=== PATIENT | female | born 1975 | race Caucasian/White ===

== ENCOUNTER → 2016-12-06 | Outpatient (CLI) | payer OTHER ==
[~2016-12-06] MED LIST: ADDERALL 10 MG10 MG PO; ALBUTEROL0.09 MG/A2 INH; ATARAX,VISTARIL50 MG PO; BRIN10TA PO; DEPAKOTE ER500 MG PO; FLEXERIL10 MG PO; GEODON20 MG PO; HYDROCODONE BIT1 T11 PO; KEFLEX500 MG PO; LAMICTAL ODT50 MG MM; LAMICTAL100 MG PO; LAMICTAL200 MG PO; LAMICTAL25 MG PO; LEVOFLOXACIN500 MG PO; LIBRIUM25 MG PO; MEDROL DOSEPAK4 MG PO; MOTRIN800 MG PO; Motrin,Rufen800 MG PO; NEURONTIN800 MG PO; NORVASC10 MG PO; PERCOCET 325 MG1 TA7 PO; PHENERGAN W/ DE30 ML PO; PREDNISONE10 MG PO; PREDNISONE20 M1 PO; TESSALON PERLE100 M1 PO; ULTRAM50 MG PO; VALIUM2 MG PO; VISTARIL50 MG PO; WELLBUTRIN XL150 MG PO; WELLBUTRIN75 MG PO; XANAX0.25 MG PO; Z-PACK; ZOLOFT100 MG PO; ZOLOFT50 MG PO
[2016-12-06 10:23] LABS: BASO # 0.1 10*3/uL (0.0-0.1); BASO % 0.4 % (0.0-1.0); EOS # 0.2 10*3/uL (0.0-0.4); EOS % 1.8 % (1.0-4.0); HEMATOCRIT 39.4 % (37.0-47.0); HEMOGLOBIN 13.1 g/dl (12.0-16.0); LYMPH # 4.4 10*3/uL (1.3-4.4); LYMPH % 35.4 % (27.0-41.0); MEAN CELL VOLUME 96.8 fl (81.0-99.0); MEAN CORPUSCULAR HGB 32.2 pg (27.0-31.0); MEAN CORPUSCULAR HGB CONC 33.2 g/dl (33.0-37.0); MEAN PLATELET VOLUME 9.6 fl (9.6-12.3); MONO # 0.9 10*3/uL (0.1-1.0); MONO % 7.4 % (3.0-9.0); NEUT # 6.9 10*3/uL (2.3-7.9); NEUT % 54.8 % (47.0-73.0); PLATELET COUNT AUTOMATED 215 10*3/uL (130-400); RED BLOOD COUNT 4.07 10*6/uL (4.10-5.10); RED CELL DISTRI WIDTH 12.8 % (0-14.5); WHITE BLOOD COUNT 12.6 10*3/uL (4.8-10.8)
[2016-12-06 10:56] LABS: CARBON DIOXIDE 29 mmol/L (21-32); CHLORIDE 102 mmol/L (98-107); POTASSIUM 3.7 mmol/L (3.5-5.1); SODIUM 139 mmol/L (136-145)
[2016-12-06 11:10] LABS: ALBUMIN 3.8 gm/dl (3.1-4.5); ALKALINE PHOSPHATASE 64 U/L (45-117); BILIRUBIN, TOTAL 0.5 mg/dl (0.2-1.0); BUN 7 mg/dl (7-24); EST GLOM FILT AFRICAN AMERICAN > 60 ml/min; GLUCOSE 91 mg/dL (65-99); SGOT/AST 15 IU/L (3-35); SGPT/ALT 15 U/L (12-78); TOTAL PROTEIN 7.8 gm/dL (6.4-8.2)
== END | disposition home or self-care (01) ==
LOC: LAB 09:52
PROVIDERS: Physician Assistant
DX: Z51.81 Encounter for therapeutic drug level monitoring (principal)

== ENCOUNTER → 2017-05-08 | Outpatient (CLI) | payer OTHER ==
[2017-05-08 14:58] LABS: BASO % 0.3 % (0.0-1.0); EOS # 0.1 10*3/uL (0.0-0.4); EOS % 0.8 % (1.0-4.0); HEMOGLOBIN 13.1 g/dl (12.0-16.0); LYMPH # 3.9 10*3/uL (1.3-4.4); LYMPH % 41.3 % (27.0-41.0); MEAN CELL VOLUME 95.1 fl (81.0-99.0); MEAN CORPUSCULAR HGB CONC 33.6 g/dl (33.0-37.0); MEAN PLATELET VOLUME 9.4 fl (9.6-12.3); MONO # 0.7 10*3/uL (0.1-1.0); MONO % 7.5 % (3.0-9.0); NEUT # 4.7 10*3/uL (2.3-7.9); NEUT % 49.8 % (47.0-73.0); PLATELET COUNT AUTOMATED 197 10*3/uL (130-400); RED CELL DISTRI WIDTH 13.2 % (0-14.5); WHITE BLOOD COUNT 9.5 10*3/uL (4.8-10.8)
[2017-05-08 15:25] LABS: ALBUMIN 3.5 gm/dl (3.1-4.5); ALKALINE PHOSPHATASE 49 U/L (45-117); BUN 5 mg/dl (7-24); CHLORIDE 109 mmol/L (98-107); CREATININE 0.87 mg/dL (0.55-1.02); POTASSIUM 3.6 mmol/L (3.5-5.1); SGPT/ALT 10 U/L (12-78); SODIUM 142 mmol/L (136-145); TOTAL PROTEIN 7.3 gm/dL (6.4-8.2)
[2017-05-08 15:36] LABS: THYROID STIM HORMONE (HS) 0.123 uIU/ml (0.358-4.75); VALPROIC ACID (DEPAKENE) 91.7 ug/ml (50-100)
[2017-05-08 15:37] LABS: SGOT/AST < 3 IU/L (3-35)
[2017-05-08 15:45] LABS: VITAMIN D, 25-HYDROXY 33.3 ng/mL (30-100)
== END | disposition home or self-care (01) ==
LOC: LAB 14:32
PROVIDERS: Physician Assistant
DX: Z51.81 Encounter for therapeutic drug level monitoring (principal); E55.9 Vitamin D deficiency, unspecified; Z79.899 Other long term (current) drug therapy

== ENCOUNTER → 2017-09-25 | Outpatient (CLI) | payer OTHER ==
[2017-09-25 13:55] LABS: BASO % 0.2 % (0.0-1.0); EOS # 0.1 10*3/uL (0.0-0.4); EOS % 0.9 % (1.0-4.0); HEMOGLOBIN 11.8 g/dl (12.0-16.0); LYMPH # 2.8 10*3/uL (1.3-4.4); LYMPH % 47.3 % (27.0-41.0); MEAN CELL VOLUME 97.9 fl (81.0-99.0); MEAN CORPUSCULAR HGB 31.2 pg (27.0-31.0); MEAN CORPUSCULAR HGB CONC 31.9 g/dl (33.0-37.0); MEAN PLATELET VOLUME 10.3 fl (9.6-12.3); MONO # 0.4 10*3/uL (0.1-1.0); MONO % 7.5 % (3.0-9.0); NEUT # 2.6 10*3/uL (2.3-7.9); NEUT % 43.6 % (47.0-73.0); PLATELET COUNT AUTOMATED 196 10*3/uL (130-400); RED BLOOD COUNT 3.78 10*6/uL (4.10-5.10); RED CELL DISTRI WIDTH 13.1 % (0-14.5); WHITE BLOOD COUNT 5.9 10*3/uL (4.8-10.8)
[2017-09-25 14:09] LABS: ALBUMIN 3.2 gm/dl (3.1-4.5); ALKALINE PHOSPHATASE 49 U/L (45-117); BUN 4 mg/dl (7-24); CHLORIDE 108 mmol/L (98-107); POTASSIUM 3.5 mmol/L (3.5-5.1); SGOT/AST 7 IU/L (3-35); SGPT/ALT 11 U/L (12-78); SODIUM 142 mmol/L (136-145); TOTAL PROTEIN 6.7 gm/dL (6.4-8.2)
[2017-09-25 14:18] LABS: THYROID STIM HORMONE (HS) 0.561 uIU/ml (0.358-4.75); VALPROIC ACID (DEPAKENE) 79.8 ug/ml (50-100)
== END | disposition home or self-care (01) ==
LOC: LAB 13:29
PROVIDERS: Physician Assistant
DX: Z51.81 Encounter for therapeutic drug level monitoring (principal); Z79.899 Other long term (current) drug therapy

== ENCOUNTER 2018-08-17 14:11 | Emergency (ER) | payer OTHER ==
[~2018-08-17] VITALS: Ht 177.8 cm; Wt 64.9 kg
[2018-08-17 14:14] VITALS: BP 135/69
[2018-08-17] MEDS ORDERED: SEPTDS PO (14:35)
[2018-08-17] MEDS ORDERED: CEPHALEXIN500 M1 PO (14:35)
== END 2018-08-17 15:00 | disposition home or self-care (01) ==
LOC: ED 14:11
DX: L08.9 Local infection of the skin and subcutaneous tissue, unspecified (principal); Z79.899 Other long term (current) drug therapy; Z86.14 Personal history of Methicillin resistant Staphylococcus aureus infection

== ENCOUNTER → 2018-10-24 | Outpatient (CLI) | payer OTHER ==
[~2018-10-24] MED LIST changes: +CEPHALEXIN500 M1 PO; +SEPTDS PO
== END | disposition home or self-care (01) ==
LOC: LAB 11:43
DX: Z51.81 Encounter for therapeutic drug level monitoring (principal); F31.4 Bipolar disorder, current episode depressed, severe, without psychotic features; Z79.899 Other long term (current) drug therapy

== ENCOUNTER → 2019-03-17 | Outpatient (CLI) | payer OTHER | END | disposition home or self-care (01) | LOC: LAB 10:06 | DX: Z51.81 Encounter for therapeutic drug level monitoring (principal); F31.4 Bipolar disorder, current episode depressed, severe, without psychotic features; Z79.899 Other long term (current) drug therapy ==

== ENCOUNTER 2019-09-14 15:31 | Emergency (ER) | payer OTHER ==
[~2019-09-14] VITALS: Ht 177.8 cm; Wt 56.7 kg
[2019-09-14 15:38] VITALS: BP 102/76
== END 2019-09-14 18:10 | disposition home or self-care (01) ==
LOC: ED 15:31
DX: S00.12XA Contusion of left eyelid and periocular area, initial encounter (principal); M54.2 Cervicalgia; Z79.899 Other long term (current) drug therapy; Y08.89XA Assault by other specified means, initial encounter; Y93.89 Activity, other specified; Y92.098 Other place in other non-institutional residence as the place of occurrence of the external cause; Y99.8 Other external cause status

== ENCOUNTER → 2020-04-15 | Outpatient (CLI) | payer OTHER ==
[2020-04-15 09:32] LABS: BASO % 0.5 % (0.0-1.0); EOS # 0.1 10*3/uL (0.0-0.4); EOS % 1.2 % (1.0-4.0); HEMATOCRIT 41.4 % (37.0-47.0); LYMPH # 2.4 10*3/uL (1.3-4.4); LYMPH % 40.3 % (27.0-41.0); MEAN CELL VOLUME 94.5 fl (81.0-99.0); MEAN CORPUSCULAR HGB 30.1 pg (27.0-31.0); MEAN CORPUSCULAR HGB CONC 31.9 g/dl (33.0-37.0); MEAN PLATELET VOLUME 10.6 fl (9.6-12.3); MONO # 0.5 10*3/uL (0.1-1.0); MONO % 8.1 % (3.0-9.0); NEUT # 2.9 10*3/uL (2.3-7.9); NEUT % 49.7 % (47.0-73.0); PLATELET COUNT AUTOMATED 208 10*3/uL (130-400); RED BLOOD COUNT 4.38 10*6/uL (4.10-5.10); RED CELL DISTRI WIDTH 13.7 % (0-14.5); WHITE BLOOD COUNT 5.9 10*3/uL (4.8-10.8)
[2020-04-15 09:50] LABS: ALBUMIN 3.6 gm/dl (3.1-4.5); ALKALINE PHOSPHATASE 63 U/L (45-117); B-hCG (QUALITATIVE) NEGATIVE (NEGATIVE); BILIRUBIN, DIRECT < 0.1 mg/dL (0.0-0.2); BUN 6 mg/dl (7-24); CHLORIDE 108 mmol/L (98-107); CHOLESTEROL 169 mg/dL (<200); CREATININE 0.76 mg/dL (0.55-1.02); HDL CHOLESTEROL 56 mg/dl (40-60); LDL CHOLESTEROL 88 mg/dL (9-159); POTASSIUM 3.8 mmol/L (3.5-5.1); SGOT/AST 10 IU/L (3-35); SGPT/ALT 11 U/L (12-78); SODIUM 138 mmol/L (136-145); T3 UPTAKE 34 % (31-39); TOTAL PROTEIN 7.5 gm/dL (6.4-8.2); TRIGLYCERIDES 124 mg/dl (<150); VLDL CHOLESTEROL 25 mg/dL (6-40)
[2020-04-15 09:57] LABS: THYROXINE (T4) TOTAL 4.5 ug/dl (4.8-13.9)
[2020-04-15 10:12] LABS: VITAMIN D, 25-HYDROXY 16.4 ng/mL (30-100)
== END | disposition home or self-care (01) ==
LOC: LAB 08:42
DX: Z51.81 Encounter for therapeutic drug level monitoring (principal); Z79.899 Other long term (current) drug therapy

== ENCOUNTER → 2022-02-01 | Outpatient (CLI) | payer OTHER ==
[2022-02-01 11:28] LABS: BASO % 0.5 % (0.0-1.0); EOS # 0.1 10*3/uL (0.0-0.4); EOS % 1.2 % (1.0-4.0); HEMATOCRIT 41.6 % (37.0-47.0); LYMPH # 2.6 10*3/uL (1.3-4.4); LYMPH % 39.7 % (27.0-41.0); MEAN CELL VOLUME 92.7 fl (81.0-99.0); MEAN CORPUSCULAR HGB 30.5 pg (27.0-31.0); MEAN CORPUSCULAR HGB CONC 32.9 g/dl (33.0-37.0); MEAN PLATELET VOLUME 9.9 fl (9.6-12.3); MONO # 0.4 10*3/uL (0.1-1.0); MONO % 6.8 % (3.0-9.0); NEUT # 3.4 10*3/uL (2.3-7.9); NEUT % 51.6 % (47.0-73.0); PLATELET COUNT AUTOMATED 250 10*3/uL (130-400); RED BLOOD COUNT 4.49 10*6/uL (4.10-5.10); RED CELL DISTRI WIDTH 12.4 % (0-14.5); RETICULOCYTE % 0.78 % (0.50-2.50); WHITE BLOOD COUNT 6.5 10*3/uL (4.8-10.8)
[2022-02-01 11:29] LABS: BILIRUBIN Negative (Negative); BLOOD Negative (Negative); CLARITY Cloudy (Clear); COLOR Yellow (Yellow); GLUCOSE Negative (Negative); KETONE Negative (Negative); LEUKO ESTERASE Trace (Negative); NITRITE Positive (Negative); PH 7.5 (4.5-8.0)
[2022-02-01 11:47] LABS: ALKALINE PHOSPHATASE 83 U/L (45-117); BUN 11 mg/dl (7-24); CHLORIDE 108 mmol/L (98-107); CHOLESTEROL 181 mg/dL (<200); CREATININE 0.89 mg/dL (0.55-1.02); GAMMA GLUTAMYL TRANSPEPTIDASE 20 U/L (5-55); IRON 50 ug/dL (50-170); LDL CHOLESTEROL 108 mg/dL (9-159); SGOT/AST 13 IU/L (3-35); SGPT/ALT 20 U/L (12-78); SODIUM 141 mmol/L (136-145); T3 UPTAKE 32 % (31-39); TOTAL PROTEIN 7.5 gm/dL (6.4-8.2); TRIGLYCERIDES 82 mg/dl (<150); URIC ACID 5.2 mg/dL (2.6-6.0)
[2022-02-01 13:46] LABS: BACTERIA 4+; EPITHELIAL CELLS 21-30; WBC 16-20 wbc/hpf (0-5)
[2022-02-01 15:56] LABS: FERRITIN 27.5 ng/mL (10.0-291.0); VITAMIN D, 25-HYDROXY 19.1 ng/mL (30-100)
[2022-02-02 04:06] LABS: RHEUMATOID FACTOR <10.0 IU/mL (<14.0)
[2022-02-02 13:06] LABS: ANTI-DSDNA ANTIBODIES <1 IU/mL (0-9)
[2022-02-02 14:07] LABS: LYME INTERPRETATION Lyme Abs Unconfirmed (.)
== END | disposition home or self-care (01) ==
LOC: LAB 10:54
PROVIDERS: ATTEND Family Medicine
DX: E78.5 Hyperlipidemia, unspecified (principal); E55.9 Vitamin D deficiency, unspecified; R79.89 Other specified abnormal findings of blood chemistry; R53.83 Other fatigue; R74.8 Abnormal levels of other serum enzymes

== ENCOUNTER 2023-03-10 14:39 | Emergency (ER) | payer OTHER ==
[~2023-03-10] VITALS: Ht 177.8 cm; Wt 54.4 kg
[2023-03-10 14:45] VITALS: BP 132/58
== END 2023-03-10 16:43 | disposition home or self-care (01) ==
LOC: ED 14:39
DX: S63.642A Sprain of metacarpophalangeal joint of left thumb, initial encounter (principal); F32.A Depression, unspecified; Z98.51 Tubal ligation status; Z87.891 Personal history of nicotine dependence; X50.1XXA Overexertion from prolonged static or awkward postures, initial encounter; Y93.89 Activity, other specified; Y92.89 Other specified places as the place of occurrence of the external cause; Y99.0 Civilian activity done for income or pay

== ENCOUNTER 2023-08-10 14:01 | Emergency (ER) | payer OTHER ==
[~2023-08-10 14:01] MED LIST changes: +TRAMADOL HCL50 MG PO
== END 2023-08-10 19:40 | disposition left against medical advice (07) ==
LOC: ED 14:01
DX: Z00.00 Encounter for general adult medical examination without abnormal findings (principal); Z53.21 Procedure and treatment not carried out due to patient leaving prior to being seen by health care provider